=== PATIENT | male | born 1970 ===

== ENCOUNTER 2017-07-29 05:19 | Emergency (ER) | payer BC ==
[2017-07-29] MEDS ORDERED: Oxycodone/Acetaminophen 5/325 mg Tab PO STA (05:38)
[2017-07-29 05:41] VITALS: BP 124/72; PULSE 88; RESP 17; TEMP 97.8; O2SAT 99
--- NOTE | 2017-07-29 05:45 | ED PDOC ---
HPI: General Adult Time Seen by Provider: 07/29/17 05:24 Chief Complaint (Nursing): Hip Pain Chief Complaint (Provider): Left Leg Pain History Per: Patient History/Exam Limitations: no limitations Onset/Duration Of Symptoms: Days Current Symptoms Are (Timing): Still Present Additional Complaint(s): Carlos Quiñones is a 47 year old male that presents to the ED with a chief complaint of left leg pain radiating to the L knee. Patient reports that he saw his PMD last week, who prescribed him Naproxen. Patient reports that the pain begins in his left buttock, and radiates down the lateral left side of his thigh toward his knee. He states that the pain is worse with movement and resting, and that it is improved by standing. Patient reports that he took Naproxen and flexeril last night with no relief. Denies trauma. Patient denies any weakness, numbness, tingling, bladder or bowel incontinence or midline pain. Denies fever, chest pain, shortness of breath, abdominal pain, dysuria, hematuria, flank pain, constipation, and diarrhea. Past Medical History Reviewed: Historical Data, Nursing Documentation, Vital Signs Vital Signs: Last Vital Signs Temp 97.8 F 07/29/17 05:38 Pulse 88 07/29/17 05:38 Resp 17 07/29/17 05:38 BP 124/72 07/29/17 05:38 Pulse Ox 99 07/29/17 05:57 - Family History Family History: States: CAD (Father had CABG at age 55.) - Home Medications Home Medications: Ambulatory Orders Medication Instructions Recorded Aspirin [Ecotrin] 81 mg PO DAILY 03/26/16 Indomethacin [Indocin suppository] 50 mg PO BID 03/26/16 diaZEpam [Valium] 5 mg PO Q6 PRN #15 tab 07/29/17 - Allergies Allergies/Adverse Reactions: Allergies Allergy/AdvReac Type Severity Reaction Status Date / Time No Known Allergies Allergy Verified 03/26/16 08:40 Review of Systems ROS Statement: Except As Marked, All Systems Reviewed And Found Negative Constitutional: Negative for: Fever Cardiovascular: Negative for: Chest Pain Respiratory: Negative for: Shortness of Breath, SOB with Exertion Gastrointestinal: Negative for: Nausea, Vomiting, Abdominal Pain, Diarrhea, Constipation Genitourinary Male: Negative for: Dysuria, Frequency, Incontinence, Hematuria, Penile Discharge, Scrotal Pain, Rash Musculoskeletal: Positive for: Leg Pain (left leg pain). Negative for: Back Pain (denies flank pain) Neurological: Negative for: Weakness, Numbness, Incoordination, Confusion, Seizures, Altered Mental Status, Headache Physical Exam - Reviewed Nursing Documentation Reviewed: Yes Vital Signs Reviewed: Yes - Physical Exam Appears: Positive for: Non-toxic, No Acute Distress Head Exam: Positive for: ATRAUMATIC, NORMOCEPHALIC Skin: Positive for: Normal Color, Warm Eye Exam: Positive for: EOMI, Normal appearance, PERRL Cardiovascular/Chest: Positive for: Regular Rate, Rhythm. Negative for: Murmur Respiratory: Positive for: Normal Breath Sounds. Negative for: Wheezing Gastrointestinal/Abdominal: Positive for: Normal Exam, Soft. Negative for: Tenderness Back: Positive for: Normal Inspection. Negative for: L CVA Tenderness, R CVA Tenderness, Other (no midline tenderness cervical to lumbar) Extremity: Positive for: Tenderness (Pinpoint tendernes to left gluteal area and along left lateral thigh). Negative for: Other ((-) straight leg raise) Neurologic/Psych: Positive for: Alert, Oriented, Gait (steady). Negative for: Motor/Sensory Deficits - ECG O2 Sat by Pulse Oximetry: 99 (RA) Pulse Ox Interpretation: Normal Medical Decision Making Medical Decision Making: Impression: Left Leg Pain radiating into knee. Neurologically intact. Symptoms consistent with sciatica. [place]: * Valium 5 mg PO * Toradol 15 mg IM * Percocet 1 tab PO * Reevaluation 6:40AM Patient reports pain is improved. Ambulating around ED without issue. Has flexeril and naproxen at home. Will dc with valium. Instructed on importance of following up with PMD Scribe Attestation: Documented by Cesia Stokes, acting as a scribe for Lucy Martini MD. Provider Scribe Attestation: All medical record entries made by the Yunioribe were at my direction and personally dictated by me. I have reviewed the chart and agree that the record accurately reflects my personal performance of the history, physical exam, medical decision making, and the department course for this patient. I have also personally directed, reviewed, and agree with the discharge instructions and disposition. Disposition - Clinical Impression Clinical Impression: Sciatic pain - Disposition Referrals: Sunny Mclaughlin MD [Primary Care Provider] - Disposition: Routine/Home Disposition Time: 06:43 Condition: GOOD Additional Instructions: Follow-up with PMD within 2 days. Return to ED if condition worsens. Add valium to flexeril and naproxen as needed for pain. Prescriptions: diaZEpam [Valium] 5 mg PO Q6 PRN #15 tab PRN Reason: Pain, Moderate (4-7) Instructions: Sciatica (ED) Forms: [facility] (Cuban), [facility] ED School/Work Excuse Print Language: MALDIVIAN
== END 2017-07-29 07:01 | disposition home or self-care (01) ==
LOC: H.ER 05:19
DX: M54.32 Sciatica, left side (principal); Z79.82 Long term (current) use of aspirin
CPT/HCPCS: 96372; 99282; J1885

== ENCOUNTER 2017-10-24 18:50 | Emergency (ER) | payer BC ==
[2017-10-24 18:58] VITALS: BP 156/90; PULSE 98; RESP 18; TEMP 98.6; O2SAT 96
[2017-10-24] MEDS ORDERED: Tdap Vaccine 0.5 ml Vial (10-64 yrs) IM ONE ×2 (19:11→19:59)
[2017-10-24] MEDS ORDERED: Piperacillin/Tazobact 3.375 GM in Sodium Chloride 0.9% 100 ML IV ONE (19:44)
[2017-10-24] MEDS ORDERED: Piperacillin/Tazobact 3.375 gm Inj IVPB ONE (20:00)
[2017-10-24] MEDS ORDERED: Sodium Chloride 0.9% 1,000 ML IV STA (20:33)
--- NOTE | 2017-10-24 20:51 | ED PDOC ---
Upper Extremity Pain/Injury Time Seen by Provider: 10/24/17 18:57 Chief Complaint (Nursing): Abnormal Skin Integrity Chief Complaint (Provider): Abnormal Skin Integrity History Per: Patient History/Exam Limitations: no limitations Onset/Duration Of Symptoms: Mins (prior to arrival) Current Symptoms Are (Timing): Still Present Additional Complaint(s): 47 year old male presents to the emergency department complaining of a laceration to his right hand, third digit, onset prior to arrival. He states that he was closing his garage door and his finger got stuck, and after he pulled it out, damage to the tip of his finger was noted. The patient applied dressing before arriving, and has managed to keep the bleeding controlled. Last tetanus shot is unknown. PMD: Sunny Mclaughlin Past Medical History Reviewed: Historical Data, Nursing Documentation, Vital Signs Vital Signs: Last Vital Signs Temp 98.6 F 10/24/17 18:54 Pulse 98 H 10/24/17 18:54 Resp 18 10/24/17 18:54 BP 156/90 H 10/24/17 18:54 Pulse Ox 96 10/24/17 18:54 - Medical History PMH: No Chronic Diseases - Family History Family History: States: CAD (Father had CABG at age 55.) - Social History Alcohol: None Drugs: Denies - Home Medications Home Medications: Ambulatory Orders Medication Instructions Recorded Aspirin [Ecotrin] 81 mg PO DAILY 03/26/16 Indomethacin [Indocin suppository] 50 mg PO BID 03/26/16 diaZEpam [Valium] 5 mg PO Q6 PRN #15 tab 07/29/17 Amoxicillin/Clavulanate [Augmentin 1 tab PO BID #20 tab 10/24/17 875 MG-125 MG] traMADol [Ultram] 50 mg PO Q6H PRN #10 tab 10/24/17 - Allergies Allergies/Adverse Reactions: Allergies Allergy/AdvReac Type Severity Reaction Status Date / Time No Known Allergies Allergy Verified 10/24/17 18:53 Review of Systems ROS Statement: Except As Marked, All Systems Reviewed And Found Negative Musculoskeletal: Positive for: Hand Pain (right hand third digit) Skin: Positive for: Other (laceration to right hand third digit) Physical Exam - Reviewed Nursing Documentation Reviewed: Yes Vital Signs Reviewed: Yes - Physical Exam Appears: Positive for: No Acute Distress Head Exam: Positive for: ATRAUMATIC, NORMAL INSPECTION, NORMOCEPHALIC Skin: Positive for: Normal Color, Warm, DRY Eye Exam: Positive for: Normal appearance Neck: Positive for: Normal Respiratory: Positive for: Normal Breath Sounds. Negative for: Accessory Muscle Use, Respiratory Distress Extremity: Positive for: Normal ROM (upper and lower), Other (0.5cm laceration to anterior right hand third digit, 0.5cm laceration to lateral right hand third digit) Neurologic/Psych: Positive for: Alert, Oriented - ECG O2 Sat by Pulse Oximetry: 96 (RA) Pulse Ox Interpretation: Normal Medical Decision Making Medical Decision Making: Time: 19:11 Initial Plan: --Tetanus 0.5ml IM --Sodium Chloride 0.9% 1000ml IV --Toradol 30mg IV --Zosyn 3.375 gm --XR Hand right 3rd digit Wound irrigated. Gel foam and dressing placed with splint. Follow-up with hand or PMD for wound check. Scribe Attestation: Documented by Shani Medina, acting as a scribe for Nicolasa Chang PA-C Provider Scribe Attestation: All medical entries made by the Scribe were at my direction and personally dictated by me. I have reviewed the chart and agree that the record accurately reflects my personal performance of the history, physical exam, medical decision making, and the department course for this patient. I have also personally directed, reviewed, and agree with the discharge instructions and disposition. Disposition - Clinical Impression Clinical Impression: Crush injury to finger, Tetanus toxoid vaccination administered at current visit - Patient ED Disposition Is Patient to be Admitted: No Counseled Patient/Family Regarding: Diagnosis, Need For Followup, Rx Given - Disposition Disposition: Routine/Home Disposition Time: 21:27 Condition: STABLE Prescriptions: Amoxicillin/Clavulanate [Augmentin 875 MG-125 MG] 1 tab PO BID #20 tab traMADol [Ultram] 50 mg PO Q6H PRN #10 tab PRN Reason: Pain Instructions: Crush Injury Forms: [facility] (Amharic) Print Language: COMORAN
[2017-10-24] MEDS ORDERED: Absorbable Gelatin Sponge Size 12-7 ONE (21:05)
--- NOTE | 2017-10-25 09:00 | RAD ---
PROCEDURE: Right middle finger radiographs. HISTORY: finger crush injury COMPARISON: None. TECHNIQUE: AP radiograph of the right hand, as well as spot oblique and lateral images of right middle finger were obtained. FINDINGS: RIGHT MIDDLE FINGER: Comminuted fracture of the 3rd distal phalangeal tuft. JOINTS: Normal. SOFT TISSUES: Normal. OTHER FINDINGS: None. IMPRESSION: Comminuted fracture of the 3rd distal phalangeal tuft.
== END 2017-10-24 21:45 | disposition home or self-care (01) ==
LOC: H.ER 18:50
DX: S67.192A Crushing injury of right middle finger, initial encounter (principal); W23.0XXA Caught, crushed, jammed, or pinched between moving objects, initial encounter; Y92.89 Other specified places as the place of occurrence of the external cause; Z79.82 Long term (current) use of aspirin
CPT/HCPCS: 73140; 90471; 90715; 96360; 99284; J1885; J2543; J7040